=== PATIENT | male | born 1975 | race Caucasian/White ===

== ENCOUNTER 2017-06-09 22:43 | Inpatient (IN) | payer OTHER, MEDICAID ==
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
--- NOTE | 2017-06-10 00:15 | PCM.BM ---
<Francie Salamanca - Last Filed: 06/10/17 00:12> Treatment Plan Problems - Problems identified on initial assessmt Suicidal Ideation Date Initiated: 06/09/17 Time Initiated: 23:20 Assessment reference: NA Status: Active Depression Date Initiated: 06/09/17 Time Initiated: 23:20 Assessment reference: NA Status: Active Alcohol Abuse Date Initiated: 06/09/17 Time Initiated: 23:20 Assessment reference: NA Status: Active Treatment assets and liabiliti Patient Assests: cooperative, negotiates basic needs Patient Liabilities: relationship conflicts, substance abuse - Milieu Protocol Maintain good personal hygiene: daily Encourage regular showers, daily Remind patient to perform daily oral care, daily Assist patient to perform ADL's Conduct patient checks and document Observation sheet: Q15 minutes Maintain personal safety: every shift Educate patient to report safety concerns to staff, every shift Monitor environment for contraband/sharps Medication safety: Monitor for expected outcome, potential side effects: every shift, Assess barriers to learning: every shift, Assess readiness for medication education: every shift <Bayron Beavers - Last Filed: 06/11/17 11:42> - Diagnosis (1) Bipolar disorder, curr episode mixed, severe, w/o psychotic features Status: Acute Interventions: 06/11/17 11:42 * Assess/adjust medications daily and /or as needed * See patient on an individual basis 7x/week to assess level of manic behaviors and stability * Discuss risks, benefits, side effects and alternatives of medications * (2) Alcohol use disorder, severe, dependence Status: Acute Interventions: 06/11/17 11:44 * Assess 7x/week regarding severity of withdrawal * Educate regarding risks, benefits, side effects and alternatives of medications * Use Motivational Interviewing for abstinence * Use CBT for relapse prevention * Medication management for withdrawal symptoms * Encourage medication assisted treatment * <Aarti Patel - Last Filed: 06/11/17 11:46> Family Contact Family involvement: Famliy/SO not involved - Goals for Treatment Patient goals for treatment: "I want o go back to my program." Discharge/Continuing Care - Education Needs Education Needs: Patient Medication, Patient Coping Skills - Discharge Discharge Criteria: Tolerates medication w/o severe side effects, Reduction of target symptoms Discharge to:: [facility] - Treatment Team Participation Discussed with Family/SO: No Was Patient/Family/SO present at Treatment Team Meeting: Yes
[2017-06-10] MEDS: Multiple Vitamins Tab PO SCH (10:15)
--- NOTE | 2017-06-10 13:02 | PCM.PSYCH ---
Initial Psychiatric Evaluation - Initial Psychiatric Evaluation Type of Admission: Voluntary Legal Status: Capacity Chief Complaint (in patient's own words): I was feeling depressed and suicidal.' History of Present Illness and Precipitating Events: Patient is a 42 year old male CM, who came to the hospital because of depressed mood and suicidal thoughts. Pt reports a long history of alcohol abuse and bipolar disorder. He states that he is drinking 1-3 pints daily. As per the pt he stopped taking his meds and started drinking heavily, since few weeks. As a result he started becoming increasingly depressed. Yesterday he consumed more than 2 pints became increasingly depressed and developed suicidal ideation, so came to the hospital to seek help. He reports withdrawal symptoms including shakes, sweating, anxiety , headache and cramps. Currently denies any DT's. Patient also reports a history of depression and anxiety and irritability. He denies any AVH or any paranoia. PMH: h/o seizures Allergies: NKDA Current Medications: Active Medications Generic Name Dose Route Start Last Admin Trade Name Freq PRN Reason Stop Dose Admin Chlordiazepoxide 25 mg 06/10/17 13:00 Librium PO Q8H PRN alcohol withdrawal Chlordiazepoxide 0 mg 06/10/17 18:00 Librium PO 06/15/17 17:59 Q6 PAT Taper Clonidine HCl 0.1 mg 06/10/17 12:54 Catapres PO Q4H PRN Symptoms of alcohol withdrawl Folic Acid 1 mg 06/10/17 10:00 06/10/17 10:15 Folic Acid PO 1 mg DAILY PAT Administration Lamotrigine 100 mg 06/10/17 18:00 Lamictal PO BID PAT [place] Carbonate 300 mg 06/10/17 14:00 [place] Carbonate 300mg PO TID PAT Multivitamins 1 tab 06/10/17 10:00 06/10/17 10:15 Hexavitamin PO 1 tab DAILY PAT Administration Nicotine 1 patch 06/10/17 11:45 06/10/17 12:59 Nicoderm Cq TD 1 patch DAILY PAT Administration Pneumococcal Polyvalent Vaccine 0.5 ml 06/13/17 10:00 Pneumovax 23 Vaccine IM 06/13/17 10:01 .ONCE ONE Thiamine HCl 100 mg 06/10/17 10:00 06/10/17 10:15 Vitamin B1 Tab PO 100 mg DAILY PAT Administration Trazodone HCl 50 mg 06/09/17 23:42 Desyrel PO HS PRN Insomnia Past Psychiatric History - Past Psychiatric History Previous Treatment History: Inpatient Pertinent Medical Hx (Current Medical&Sleep Prob, Allergies): Allergies Allergy/AdvReac Type Severity Reaction Status Date / Time No Known Allergies Allergy Unverified 06/09/17 22:54 Clonidine 06/09/17 Cymbalta 06/09/17 Klonopin 06/09/17 Lamictal 200 mg PO BID 06/09/17 [place] 06/09/17 Review of Systems - Review of Systems All systems: reviewed and no additional remarkable complaints except - Psychiatric Psychiatric: Anxiety, Irritability, Suicidal Ideation Mental Status Examination - Personal Presentation Personal Presentation: Looks stated age - Affect Affect: Constricted, Depressed - Motor Activity Motor Activity: Calm - Reliability in Providing Information Reliability in Providing Information: Fair - Speech Speech: Organized - Mood Mood: Anxious - Formal Thought Process Formal Thought Process: Flight of ideas, Circumstantial - Obsessions/Compulsions Obsessions: No Compulsions: No - Cognitive Functions Orientation: Person, Place, Situation, Time Sensorium: Alert Attention/Concentration: Attentive Abstract Thinking: [place] Estimate of Intelligence: Below average Judgement: Imparied, as evidence by: Poor judgement, Imparied, as evidence by: Lack of insight into illness - Risk Risk: Suicidal, Withdrawal, Diminished functioning - Limitations Limitations: Living alone DSM 5 DX - DSM 5 DSM 5 Diagnosis: Bipolar disorder mixed severe without psychotic features Alcohol use disorder severe Alcohol withdrawal - Recommended/Plan of Treatment Treatment Recommendations and Plan of Treatment: Bipolar disorder mixed severe without psychotic features CBT Psychoeducation Supportive therapy, group therapy, individual therapy [place] 300 mg PO TID Trazodone 50 mg by mouth daily at bedtime Alcohol use disorder severe CBT Psychoeducation Supportive therapy, individual therapy Use [place] for abstinence Alcohol withdrawal CBT Psychoeducation Supportive therapy, individual therapy Librium taper when scoring Librium PRN Seizure disorder Continue Lamictal 100 mg PO BID - Smoking Cessation Smoking Cessation Initiated: No
[2017-06-11] MEDS: Multiple Vitamins Tab PO SCH (09:40)
--- NOTE | 2017-06-11 10:50 | PCM.PYCHPN ---
Psychiatric Progress Note - Psychiatric Progress Note Patient seen today, length of contact: 15 min Patient Chief Complaint: I was feeling depressed and suicidal.' Problems Identified/Issues Discussed: Patient seen and evaluated, chart reviewed and discussed with the nurse. He reports depressed mood and feelings of hopelessness and helplessness. He remained isolated, confined and withdrawn. Patient reports withdrawal symptoms including nausea, headaches, cramps and sweating. He reports irritability and agitation. Patient is compliant with medications and denies any side effects. Symptoms are improving but need more time to stabilize. Support and psychoeducation given. Medication Change: Yes (librium taper) Medical Record Reviewed: Yes Mental Status Examination - Cognitive Function Orientation: Person, Place, Situation, Time Memory: Intact Attention: WNL Concentration: Poor Association: WNL Fund of Knowledge: Poor - Mood Mood: Depressed, Anxious - Affect Affect: Constricted, Depressed - Speech Speech: Soft - Formal Thought Process Formal Thought Process: Flight of ideas - Suicidal Ideation Suicidal Ideation: No - Homicidal Ideation Homicidal Ideation: No Goal/Treatment Plan - Goal/Treatment Plan Need for Continued Stay: Remain at risks for inpatient hospitalization, Severe functional impairment Progress Toward Problem(s) and Goals/Treatment Plan: Bipolar disorder mixed severe without psychotic features CBT Psychoeducation Supportive therapy, group therapy, individual therapy [place] 300 mg PO TID Trazodone 50 mg by mouth daily at bedtime Alcohol use disorder severe CBT Psychoeducation Supportive therapy, individual therapy Use [place] for abstinence Alcohol withdrawal CBT Psychoeducation Supportive therapy, individual therapy Librium taper when scoring Librium PRN Seizure disorder Continue Lamictal 100 mg PO BID - Smoking Cessation Smoking Cessation Initiated: No
[2017-06-12] MEDS: Multiple Vitamins Tab PO SCH (09:43)
--- NOTE | 2017-06-12 17:55 | PCM.PYCHPN ---
Psychiatric Progress Note - Psychiatric Progress Note Patient seen today, length of contact: 15 min Patient Chief Complaint: I'm feeling better Problems Identified/Issues Discussed: Patient was seen. Chart was reviewed important content noted. Nurse input received. Patient has no new complaints. No events overnight. patient stated he is feeling better. He reported improvement in his withdrawal symptoms. Patient slept well and is eating well. Denies suicidal or homicidal ideations. Patient does not report hallucinations. No delusions elicited. No paranoia elicited. Patient has remained in good clinical and behavioral control. Symptoms are improving, but needs more time to stabilize. Patient is finding medications beneficial and would like to continue with treatment plan. Patient appreciated that treatment team is trying to help. Medication Change: Yes (librium taper) Medical Record Reviewed: Yes Mental Status Examination - Cognitive Function Orientation: Person, Place, Situation, Time Memory: Intact Attention: WNL Concentration: Poor Association: WNL Fund of Knowledge: Poor Decription of patient's judgement and insights: fair/fair Addtional comments: calm and cooperative - Mood Mood: Depressed, Anxious - Affect Affect: Constricted, Depressed - Speech Speech: Soft - Formal Thought Process Formal Thought Process: Flight of ideas, Circumstantial Psychotic Thoughts and Behaviors: denied - Suicidal Ideation Suicidal Ideation: No Plan: denied - Homicidal Ideation Homicidal Ideation: No Plan: denied Goal/Treatment Plan - Goal/Treatment Plan Need for Continued Stay: Remain at risks for inpatient hospitalization, Severe functional impairment Progress Toward Problem(s) and Goals/Treatment Plan: Bipolar disorder mixed severe without psychotic features CBT Psychoeducation Supportive therapy, group therapy, individual therapy [place] 300 mg PO TID Trazodone 50 mg by mouth daily at bedtime Alcohol use disorder severe CBT Psychoeducation Supportive therapy, individual therapy Use [place] for abstinence Alcohol withdrawal CBT Psychoeducation Supportive therapy, individual therapy Librium taper when scoring Librium PRN Seizure disorder Continue Lamictal 100 mg PO BID Estimated Date of D/C: 06/15/17 - Smoking Cessation Smoking Cessation Initiated: Yes
[2017-06-13 05:49] VITALS: O2SAT 100
[2017-06-13] MEDS: Multiple Vitamins Tab PO SCH (09:11)
[2017-06-13] MEDS ORDERED: Pneumococcal 23-Valent Vaccine IM ONE (10:00)
[2017-06-13] MEDS ORDERED: Influenza Vaccine 60 mcg/0.5 mL SYR (4YR UP) IM ONE (10:00)
--- NOTE | 2017-06-13 16:55 | PCM.PYCHPN ---
Psychiatric Progress Note - Psychiatric Progress Note Patient seen today, length of contact: 15 min Patient Chief Complaint: "I have pains" Problems Identified/Issues Discussed: Patient was seen. Chart was reviewed important content noted. Nurse input received. Patient has medications seeking behavior. patient has a lot of somatic complaints during pains in the legs and asking to increase the dose of methadone. Patient has no issues overnight. He reported improvement in his withdrawal symptoms. Patient slept well and is eating well. Denies suicidal or homicidal ideations. Patient does not report hallucinations. No delusions elicited. No paranoia elicited. Patient has remained in good clinical and behavioral control. Symptoms are improving, but needs more time to stabilize. Patient is finding medications beneficial and would like to continue with treatment plan. Patient appreciated that treatment team is trying to help. Medication Change: Yes (librium taper) Medical Record Reviewed: Yes Mental Status Examination - Cognitive Function Orientation: Person, Place, Situation, Time Memory: Intact Decription of patient's judgement and insights: Limited/limited - Mood Mood: Anxious - Affect Affect: Constricted, Depressed - Speech Speech: Soft - Formal Thought Process Formal Thought Process: Flight of ideas, Circumstantial, Other (executive to obtain pain Medications) - Suicidal Ideation Suicidal Ideation: No Plan: denied - Homicidal Ideation Homicidal Ideation: No Plan: denied Goal/Treatment Plan - Goal/Treatment Plan Need for Continued Stay: Remain at risks for inpatient hospitalization, Severe functional impairment Progress Toward Problem(s) and Goals/Treatment Plan: continue: Bipolar disorder mixed severe without psychotic features CBT Psychoeducation Supportive therapy, group therapy, individual therapy [place] 300 mg PO TID Trazodone 50 mg by mouth daily at bedtime Alcohol use disorder severe CBT Psychoeducation Supportive therapy, individual therapy Use [place] for abstinence Alcohol withdrawal CBT Psychoeducation Supportive therapy, individual therapy Librium taper when scoring Librium PRN Seizure disorder Continue Lamictal 100 mg PO BID Estimated Date of D/C: 06/15/17
[2017-06-14 08:52] VITALS: TEMP 97.5
[2017-06-14] MEDS: Multiple Vitamins Tab PO SCH (09:34)
--- NOTE | 2017-06-14 11:51 | PCM.PYCHPN ---
Psychiatric Progress Note - Psychiatric Progress Note Patient seen today, length of contact: 15 min Patient Chief Complaint: I was feeling depressed and suicidal.' Problems Identified/Issues Discussed: Patient seen and evaluated, chart reviewed and discussed with the nurse. He reports depressed mood and feelings of hopelessness and helplessness. He remained isolated, confined and withdrawn. Patient reports withdrawal symptoms including nausea, headaches, cramps and sweating. He reports irritability and agitation. Patient is compliant with medications and denies any side effects. Symptoms are improving but need more time to stabilize. Support and psychoeducation given. Medication Change: Yes (librium taper) Medical Record Reviewed: Yes Mental Status Examination - Cognitive Function Orientation: Person, Place, Situation, Time Memory: Intact - Mood Mood: Anxious - Affect Affect: Constricted, Depressed - Speech Speech: Soft - Formal Thought Process Formal Thought Process: Flight of ideas, Circumstantial, Other (executive to obtain pain Medications) - Suicidal Ideation Suicidal Ideation: No - Homicidal Ideation Homicidal Ideation: No Goal/Treatment Plan - Goal/Treatment Plan Need for Continued Stay: Remain at risks for inpatient hospitalization, Severe functional impairment Progress Toward Problem(s) and Goals/Treatment Plan: Bipolar disorder mixed severe without psychotic features CBT Psychoeducation Supportive therapy, group therapy, individual therapy [place] 300 mg PO TID Trazodone 50 mg by mouth daily at bedtime Alcohol use disorder severe CBT Psychoeducation Supportive therapy, individual therapy Use [place] for abstinence Alcohol withdrawal CBT Psychoeducation Supportive therapy, individual therapy Librium taper when scoring Librium PRN Seizure disorder Continue Lamictal 100 mg PO BID Estimated Date of D/C: 06/15/17
[2017-06-15] MEDS: Multiple Vitamins Tab PO SCH (10:05)
--- NOTE | 2017-06-15 10:32 | PCM.PYCHPN ---
Psychiatric Progress Note - Psychiatric Progress Note Patient seen today, length of contact: 15 min Patient Chief Complaint: I was feeling depressed and suicidal.' Problems Identified/Issues Discussed: Patient seen and evaluated, chart reviewed and discussed with the nurse. He reports depressed mood and feelings of hopelessness and helplessness. He remained isolated, confined and withdrawn. Patient reports withdrawal symptoms including nausea, headaches, cramps and sweating. He reports irritability and agitation. Patient is compliant with medications and denies any side effects. Symptoms are improving but need more time to stabilize. Support and psychoeducation given. Medication Change: Yes (librium taper) Medical Record Reviewed: Yes Mental Status Examination - Cognitive Function Orientation: Person, Place, Situation, Time Memory: Intact - Mood Mood: Anxious - Affect Affect: Constricted, Depressed - Speech Speech: Soft - Formal Thought Process Formal Thought Process: Flight of ideas, Circumstantial, Other (executive to obtain pain Medications) - Suicidal Ideation Suicidal Ideation: No - Homicidal Ideation Homicidal Ideation: No Goal/Treatment Plan - Goal/Treatment Plan Need for Continued Stay: Remain at risks for inpatient hospitalization, Severe functional impairment Progress Toward Problem(s) and Goals/Treatment Plan: Bipolar disorder mixed severe without psychotic features CBT Psychoeducation Supportive therapy, group therapy, individual therapy [place] 300 mg PO TID Trazodone 50 mg by mouth daily at bedtime Alcohol use disorder severe CBT Psychoeducation Supportive therapy, individual therapy Use [place] for abstinence Alcohol withdrawal CBT Psychoeducation Supportive therapy, individual therapy Librium taper when scoring Librium PRN Seizure disorder Continue Lamictal 100 mg PO BID Estimated Date of D/C: 06/15/17
[2017-06-16 05:47] VITALS: BP 109/68; PULSE 66; RESP 16
[2017-06-16] MEDS: Multiple Vitamins Tab PO SCH (09:47)
--- NOTE | 2017-06-16 09:58 | PCM.PYCHDC ---
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 Pt reports a long history of alcohol abuse and bipolar disorder. He states that he is drinking 1-3 pints daily. As per the pt he stopped taking his meds and started drinking heavily, since few weeks. As a result he started becoming increasingly depressed. Yesterday he consumed more than 2 pints became increasingly depressed and developed suicidal ideation, so came to the hospital to seek help. He reports withdrawal symptoms including shakes, sweating, anxiety , headache and cramps. Currently denies any DT's. Patient also reports a history of depression and anxiety and irritability. He denies any AVH or any paranoia. Consultations:: List each consultation separately and include: 1. Reason for request. 2. Findings. 3. Follow-up Summary of Hospital Course include:: 1. Description of specific treatment plan utilized for patients during their course of treatmen. 2. Summarize the time- course for resolution of acute symptoms and/or regressed behaviors. 3. Describe issues identified and worked on during hospitalization. 4. Describe medication utilized. 5. Describe medical problems identified and treated. 6. 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 Pt reports a long history of alcohol abuse and bipolar disorder. He states that he is drinking 1-3 pints daily. As per the pt he stopped taking his meds and started drinking heavily, since few weeks. As a result he started becoming increasingly depressed. Yesterday he consumed more than 2 pints became increasingly depressed and developed suicidal ideation, so came to the hospital to seek help. He reports withdrawal symptoms including shakes, sweating, anxiety , headache and cramps. Currently denies any DT's. Patient also reports a history of depression and anxiety and irritability. He denies any AVH or any paranoia. PMH: h/o seizures Allergies: NKDA - Diagnosis (1) Bipolar disorder, curr episode mixed, severe, w/o psychotic features Current Visit: Yes Status: Acute (2) Alcohol use disorder, severe, dependence Current Visit: Yes Status: Acute - Final Diagnosis (DSM 5) Condition upon Discharge: GOOD DSM 5: Bipolar disorder mixed severe without psychotic features Alcohol use disorder severe Alcohol withdrawal Disposition: HOME/ ROUTINE Follow-up Treatment Plan: Bipolar disorder mixed severe without psychotic features CBT Psychoeducation Supportive therapy, group therapy, individual therapy Carrabelle 300 mg PO TID Trazodone 50 mg by mouth daily at bedtime Alcohol use disorder severe CBT Psychoeducation Supportive therapy, individual therapy Use AK for abstinence Alcohol withdrawal CBT Psychoeducation Supportive therapy, individual therapy Librium taper when scoring Librium PRN Seizure disorder Continue Lamictal 100 mg PO BID Prescriptions/Medication Reconciliation: Carrabelle Carbonate [Carrabelle Carbonate 300MG] 450 mg PO BID #60 cap QUEtiapine [SEROquel] 50 mg PO HS #30 tab traZODone [Desyrel] 50 mg PO HS PRN #30 tab PRN Reason: Insomnia - Smoking Cessation Smoking Cessation Medication prescribed: No - Antipsychotic Medications Pt discharged on 2 or more routine antipsychotic medications: No
== END 2017-06-16 12:30 | disposition home or self-care (01) | DRG 897 ==
LOC: C.ER 22:43 → C.5E 23:02
PROVIDERS: ADMIT Psychiatry & Neurology Psychiatry; ATTEND Psychiatry & Neurology Psychiatry
PROC: HZ2ZZZZ Detoxification Services for Substance Abuse Treatment (ICD-10-PCS; principal; 2017-06-09)
PROC: GZ56ZZZ Individual Psychotherapy, Supportive (ICD-10-PCS; 2017-06-09)
DX: F10.239 Alcohol dependence with withdrawal, unspecified (principal); F31.63 Bipolar disorder, current episode mixed, severe, without psychotic features; F32.1 Major depressive disorder, single episode, moderate; F41.9 Anxiety disorder, unspecified; Z76.5 Malingerer [conscious simulation]; Y90.5 Blood alcohol level of 100-119 mg/100 ml; G40.909 Epilepsy, unspecified, not intractable, without status epilepticus